=== PATIENT | female | born 1990 ===

== ENCOUNTER 2016-12-10 05:29 | Inpatient (IN) ==
[2016-12-10] MEDS ORDERED: LEVOFLOXACIN 750 MG TABLET PO STA (06:20)
[2016-12-10] MEDS ORDERED: LEVOFLOXACIN 750 MG TABLET ONE (06:46)
[2016-12-10 07:15] LABS: Basophils % 0.2 % (0.0-0.8); Eosinophils % 0.1 % (0.00-10.9); Hematocrit 31.9 VOL% (35.7-47.0); Hemoglobin 10.1 GM/DL (12.0-16.0); Immature Granulocytes % 0.3 %; Immature Granulocytes Absolute 0.04 #; Lymphocytes # 1.2 10*3/uL (1.4-4.0); Lymphocytes % 9.3 % (21.3-54.2); Mean Corpuscular HGB Conc 31.7 GM/DL (32-36); Mean Corpuscular Hemoglobin 24 PG (27-34); Mean Corpuscular Volume 75.4 FL (87-102); Mean Platelet Volume 10.9 FL (9.6-12.0); Monocytes # 0.5 10*3/uL (0.11-0.8); Monocytes % 3.5 % (1.7-12.7); Neutrophils # 11.3 10*3/uL (1.4-7.4); Neutrophils % 86.6 % (38.7-73.9); Platelet Count 263 T/CUMM (130-400); Red Blood Count 4.23 MC/CUMM (3.8-5.5); Red Cell Distribution Width 14.9 % (9.3-17.3)
[2016-12-10 07:33] LABS: Elliptocytes Few; Hypochromasia 1+; Polychromasia Slight
[2016-12-10] MEDS ORDERED: CLINDAMYCIN INJ 600 MG in PREMIX 1 EACH IV STA (07:45)
[2016-12-10] MEDS ORDERED: CLINDAMYCIN INJ 50 ML IV ONE (07:46)
[2016-12-10] MEDS ORDERED: ONDANSETRON 4 MG/2 ML VIAL IV PRN (07:54)
[2016-12-10] MEDS ORDERED: LEVOFLOXACIN INJ 750 MG in PREMIX 1 EACH IV STA (07:54)
[2016-12-10 07:55] LABS: Albumin 3.3 G/DL (3.4-5.0); Bilirubin,Total 0.5 MG/DL (0.2-1.0); Calcium 8.9 MG/DL (8.5-10.1); Osmolality,Calculated 277.5 MOS/KG (273-304); Total Protein 7.3 G/DL (6.4-8.3)
--- NOTE | 2016-12-10 07:55 | XRay Report ---
XR chest 2V Date: 12/10/2016 6:20 AM History: Shortness of breath Comparison: None Technique: PA and lateral chest Findings: The heart is normal in size. Diffuse alveolar parenchymal findings in the right lung especially in the right middle lobe. Minimal shift of the mediastinum to the right. No acute osseous findings are noted. Impression: Evidence of pneumonia involving the right lung especially the right middle lobe. Minimal shift of mediastinum to the right consistent with associated atelectasis. Ill-defined densities are noted and follow-up chest x-ray is recommended. PROCEDURE INTERPRETED AT [facility] DEPARTMENT OF RADIOLOGY Final Report Signed by: Dr. Beryl Aj
[2016-12-10 07:57] LABS: Potassium 6.2 MMOL/L (3.5-5.1)
--- NOTE | 2016-12-10 07:59 | Emergency Department Note ---
Erica Shipman Brittany, am scribing for, and in the presence of, Neymar López MD 06:19. Rene Shipman Phillip K, MD, personally performed the services described in this documentation, ascribed by Larisa Maldonado in my presence, and it is both accurate and complete 623 . Arrival - Arrival Chief Complaint: Shortness of Breath Stated Complaint: sob ED Nursing Triage Note: pt presented to triage ambulatory with c/o SOB x 5 hrs. Pt states she woke up SOB. reports hx of gastric bypass and has a problem with gastric reflux since surgery. pt stats she is concerned she aspirated. O2 sats 99% on RA. pt anxious and coughing in triage. Mode of Arrival: Ambulatory Limitations: No Limitations Source: Patient Time Seen by Provider: 12/10/16 06:03 - History of Present Illness HPI Narrative: This is a 26 y/o black female, who presents to the ED with c/o SOB which started 5 hours ago. he reports a cough but denies a fever. She steates 4 years ago she had gastric bypass surgery and has had a hx of aspiration. She reports she has had a sharp chest pain when coughing. Pt has no other complaints/pain in the ED at this time. Pt denies a PMHx. Pt has had a gastric bypass surgery. Pt denies a family medical Hx. Pt denies a smoking Hx but notes drinking on occasional. 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[employer]) Consistency: constant Severity: moderate Date of Last Menstrual Period: 11/26/16 Allergies/Adverse Reactions: Allergies Allergy/AdvReac Type Severity Reaction Status Date / Time No Known Allergies Allergy Verified 12/10/16 05:40 Home Medications: Home Medications Medication Instructions Recorded Confirmed Type Omeprazole 40 mg PO DAILY 12/10/16 12/10/16 History Review of System - Review of System 12 point system: reviewed and no additional remarkable complaints except as stated - Review of System Constitutional: Absent: fever Respiratory: Present: cough Cardiovascular: Present: chest pain, dyspnea on exertion Medical,Surgical,& Family Hx - Medical History Cardio: No history of: Hypertension Endocrine: No history of: Diabetes Mellitus (IDDM), Diabetes Mellitus (NIDDM) Respiratory: No history of: Asthma, Bronchitis, Pneumonia Renal: No history of: Renal Failure, Renal Problems Gastrointestinal: No history of: Gastrointestinal Bleed, Liver Problems, GI Problems - Surgical History Abdominal Surgeries: Surgical HX of: Gastric Bypass Surgery (2013) - Social History Smoking Status: Never smoker Frequency of Alcohol Use: Occasionally Type of Drug Use: None Exam Vital Signs: Vital Signs Temperature 98.8 F 12/10/16 05:32 Pulse Rate 96 H 12/10/16 06:10 Respiratory Rate 20 12/10/16 06:23 Blood Pressure 112/72 12/10/16 06:10 O2 Sat by Pulse Oximetry 98 12/10/16 05:32 - General General appearance: alert, in no apparent distress - Head Head exam: Present: atraumatic, normocephalic, normal inspection - Eye Eye exam: Present: normal appearance, PERRL, EOMI. Absent: nystagmus, miosis, mydriasis - ENT ENT exam: Present: normal exam, normal oropharynx, mucous membranes moist, TM's normal bilaterally, normal external ear exam - Neck Neck exam: Present: normal inspection, full ROM, trachea midline. Absent: tenderness, meningismus, lymphadenopathy, thyromegaly - Chest Chest inspection: Present: normal inspection, symmetric chest wall rise. Absent : tenderness, rash, abscess - Respiratory Respiratory exam: Present: rales (Rales in the right lung ) - Cardiovascular Cardiovascular exam: Present: normal rhythm, tachycardia, normal heart sounds. Absent: murmur, rubs, gallop, clicks - Abdominal Exam Abdominal exam: Present: soft, normal bowel sounds. Absent: distention, tenderness, guarding, rebound, rigidity - Rectal Exam Rectal exam: Present: deferred - Extremities Exam Extremities exam: Present: normal inspection, full ROM, normal capillary refill. Absent: tenderness, pedal edema, joint swelling, calf tenderness - Back Exam Back exam: Present: normal inspection, full ROM. Absent: tenderness, muscle spasm, rashes - Neurological Exam Neurological exam: Present: alert, oriented X3, CN II-XII intact. Absent: motor sensory deficit - Psychiatric Psychiatric exam: Present: normal affect, normal mood. Absent: depressed, agitated, anxious, flat affect, manic - Skin Skin exam: Present: warm, dry, intact, normal color. Absent: rash, cyanosis, diaphoresis, erythema, pallor, mottled Course Course Narrative: Patient discussed with Dr. Coughlin and we will admit for IV antibiotics and a pulmonary consult. Results - Labs CBC & BMP: 12/10/16 06:29 12/10/16 06:29 Lab Results: I have reviewed the patients labs Labs: Laboratory Tests 12/10/16 06:29 WBC 13.0 H RBC 4.23 Hgb 10.1 L Hct 31.9 L MCV 75.4 L MCH 24 L MCHC 31.7 L RDW 14.9 Plt Count 263 MPV 10.9 Neut % (Auto) 86.6 H Lymph % (Auto) 9.3 L Harney % (Auto) 3.5 Eos % (Auto) 0.1 Baso % (Auto) 0.2 Neut # (Auto) 11.3 H Lymph # (Auto) 1.2 L Harney # (Auto) 0.5 Eos # (Auto) 0.0 Baso # (Auto) 0.0 Immature Gran % 0.3 Nucleated RBC % 0.0 Immature Gran # 0.04 Nucleated RBCs # 0.00 Polychromasia Slight Hypochromasia 1+ Elliptocytes Few Laboratory Tests 12/10/16 06:29 WBC 13.0 H RBC 4.23 Hgb 10.1 L Hct 31.9 L MCV 75.4 L MCH 24 L MCHC 31.7 L RDW 14.9 Plt Count 263 MPV 10.9 Neut % (Auto) 86.6 H Lymph % (Auto) 9.3 L Harney % (Auto) 3.5 Eos % (Auto) 0.1 Baso % (Auto) 0.2 Neut # (Auto) 11.3 H Lymph # (Auto) 1.2 L Harney # (Auto) 0.5 Eos # (Auto) 0.0 Baso # (Auto) 0.0 Immature Gran % 0.3 Nucleated RBC % 0.0 Immature Gran # 0.04 Nucleated RBCs # 0.00 Polychromasia Slight Hypochromasia 1+ Elliptocytes Few - EKG EKG results: interpreted by ERMD (Sinus tachycardia) - Diagnostic Findings Procedure: Chest x-ray: report reviewed by me (Evidence of pneumonia involving the right lung especially the right middle lobe. Minimal shift of mediastinum ot the right consitent with associated atel) Disposition Clinical Impression: Pneumonia, Possible aspiration pneumonia Case discussed with: patient Disposition: Still a Patient Condition: Guarded Additional Instructions: Admit to Dr. Coughlin.
[2016-12-10] MEDS: CLINDAMYCIN INJ 600 MG in PREMIX 1 EACH IV SCH ×2 (08:21→16:14)
[2016-12-10] MEDS: DOCUSATE SODIUM 100 MG CAPSULE PO SCH ×2 (09:39→20:50)
--- NOTE | 2016-12-10 11:05 | Pulmonology Consult Note ---
Assessment and Plan (1) Aspiration pneumonia Status: Acute Assessment and plan: Patient remembers reflux in her mouth and aspirating. She normally can cough it up she says that she could not do that overnight. She felt it was all liquid. She has had several episodes of aspiration that she has noted. She did have lap band surgery actually a gastric sleeve about 3 years ago. This may need looking at by GI to see if she needs further management other than Prilosec. Current Visit: Yes (2) Status post gastric sleeve surgery Status: Acute Assessment and plan: She had surgery about 3 years ago in [place]. She said she lost 100 pounds but has gained it back. Not sure the functionality of this at this point. She is having a good bit of reflux. Needs a GI evaluation. Current Visit: Yes History of Present Illness Chief complaint: Cough congestion shortness of breath History of present illness: Ms. Costa is a 26 year old female had gastric sleeve surgery several years ago when in school in [place]. She lost 100 pounds but has gained it back. She moved back to [place]. She has had several episodes of aspiration over the last couple of years but has not had any pneumonia that she is aware of. She just coughs a good bit after waking up during the night. Last night she felt like she had an episode of aspiration and this morning was coughing and having right pleuritic pain. She came to the emergency room. She was found to have an infiltrate in the right lung and was admitted. She is a non-smoker nondrinker. Only medication she takes regularly as Prilosec. Home Medications Medication Instructions Recorded Confirmed Type Omeprazole 40 mg PO DAILY 12/10/16 12/10/16 History Allergies Allergy/AdvReac Type Severity Reaction Status Date / Time No Known Allergies Allergy Verified 12/10/16 05:40 - Constitutional Constitutional: Present: weight gain, weight loss - Respiratory Respiratory: Present: cough, dyspnea on exertion, pain on inspiration - Gastrointestinal Gastrointestinal: Present: dyspepsia Exam (Pulmonay) H&P - Constitutional Vitals: Period Temp Pulse Resp BP Sys/Howe Pulse Ox Last 24 Hr 98.8 F 96-101 18-20 102-112/67-72 98 Exam: Patient's alert and oriented vital signs normal. Pupils react to light. Throat is clear. Neck supple bruits. Chest reveals rales in the right lung. I can hear them both posteriorly and anteriorly. Left lung is clear. Heart normal rate rhythm no murmurs. Abdomen soft nontender no masses. Bowel sounds present. Extremities no clubbing cyanosis or edema. Calves nontender Medical,Surgical,& Family Hx - Medical History Cardio: No history of: Hypertension Endocrine: No history of: Diabetes Mellitus (IDDM), Diabetes Mellitus (NIDDM) Respiratory: No history of: Asthma, Bronchitis, Pneumonia Renal: No history of: Renal Failure, Renal Problems Gastrointestinal: History of: GERD No history of: Gastrointestinal Bleed, Liver Problems, GI Problems - Surgical History Abdominal Surgeries: Surgical HX of: Gastric Bypass Surgery (2012) - Family History Family History: Reports;: Family Hypertension (mom) - Social History Smoking Status: Never smoker Frequency of Alcohol Use: Occasionally Type of Drug Use: None Results - Labs CBC & BMP: 12/10/16 06:29 12/10/16 06:29 - Diagnostic Findings Procedure: Chest x-ray: image reviewed by me (Right lung infiltrate. I favor it being in her superior segment. Difficult to visualize on lateral.)
[2016-12-10] MEDS ORDERED: FUROSEMIDE 20 MG/2 ML VIAL IV ONE (11:10)
[2016-12-10] MEDS ORDERED: ALBUTEROL 2.5 MG/3 ML NEB RESP TX ONE (11:11)
[2016-12-10] MEDS ORDERED: FUROSEMIDE 40 MG/4 ML VIAL ONE (11:33)
--- NOTE | 2016-12-10 11:34 | EKG Report ---
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
--- NOTE | 2016-12-10 12:07 | Gastrointestinal Consult Note ---
<Arabella Hernandez - Last Filed: 12/10/16 12:05> Assessment and Plan (1) GERD (gastroesophageal reflux disease) Status: Acute Assessment and plan: 12/10-Hx of gastric sleeve surgery with onset of reflux, increased cough at HS, and new onset right lung pneumonia on chest xray. Start Protonix. Will consider EGD when respiratory status improves. Plan and addendum to follow by Dr Shelton. Current Visit: Yes History of Present Illness Chief complaint: Reflux History of present illness: Ms. Costa is a 26 year old female who was admitted to the hospital with onset of shortness of breath and cough. Pt states that over the last several days she has had onset of increased shortness and cough. Pt has a history of gastric sleeve surgery four years ago at [facility] while she was in school. She states that she initially lost 100 pounds however over the last four years she has slowly gained this back. She reports that ever since her surgery she has had an issue with reflux symptoms. She states that she has episodes of off and on reflux and at times regurgitation and she takes Prilosec for this but she does admit to not taking this consistently. She states that here recently she has noticed that at night she is awakened with a cough and constant having to clear her throat. She also reports a feeling of burning in her esophagus at times. She denies any dysphagia or abdominal pain associated with this. She states that she does sleep with several pillows at night however the head of her bed is not elevated. Patient has no prior history of endoscopy in the past. She was admitted to the hospital and upon admission she was found on x- ray to have an infiltration to her right lung and started on IV antibiotics. After pulmonology evaluation, patient felt to have an element of aspiration associated with her reflux. She takes no regular medications other than Prilosec as needed. She works 2 jobs and is fairly active in her lifestyle. However she does state that she has noted since she has gained her weight back that her reflux symptoms have worsened. Home Medications Medication Instructions Recorded Confirmed Type Omeprazole 40 mg PO DAILY 12/10/16 12/10/16 History Allergies Allergy/AdvReac Type Severity Reaction Status Date / Time No Known Allergies Allergy Verified 12/10/16 05:40 Medical,Surgical,& Family Hx - Medical History Cardio: No history of: Hypertension Endocrine: No history of: Diabetes Mellitus (IDDM), Diabetes Mellitus (NIDDM) Respiratory: No history of: Asthma, Bronchitis, Pneumonia Renal: No history of: Renal Failure, Renal Problems Gastrointestinal: History of: GERD No history of: Gastrointestinal Bleed, Liver Problems, GI Problems - Surgical History Abdominal Surgeries: Surgical HX of: Gastric Bypass Surgery (2012) - Family History Family History: Reports;: Family Hypertension (mom) - Social History Smoking Status: Never smoker Frequency of Alcohol Use: Occasionally Type of Drug Use: None 12 point system: reviewed and no additional remarkable complaints except as stated - Constitutional Constitutional: Present: as per HPI - EENT Eyes: Present: as per HPI Ears: Present: as per HPI Nose, mouth and throat: Present: as per HPI - Cardiovascular Cardiovascular: Present: as per HPI - Respiratory Respiratory: Present: as per HPI - Gastrointestinal Gastrointestinal: Present: as per HPI, dyspepsia - Genitourinary Genitourinary: Present: as per HPI - Musculoskeletal Musculoskeletal: Present: as per HPI - Neurological Neurological: Present: as per HPI - Psychiatric Psychiatric: Present: as per HPI - Endocrine Endocrine: Present: as per HPI - Hematologic/Lymphatic Hematologic/Lymphatic: Present: as per HPI Exam - Constitutional Vitals: Period Temp Pulse Resp BP Sys/Howe Pulse Ox Last 24 Hr 98.3 F-98.8 F 66-101 18-20 102-120/67-72 98-99 General appearance: normal weight, no acute distress - Head Head exam: Present: normal inspection, normocephalic - Eye Eye exam: Present: other (lids and conjunctiva unremarkable). Absent: scleral icterus - ENT ENT exam: Present: normal exam, normal oropharynx - Neck Neck exam: Present: normal inspection - Respiratory Respiratory exam: Present: clear to auscultation bilaterally. Absent: rales, rhonchi, wheezes - Cardiovascular Cardiovascular exam: Present: regular rate and rhythm. Absent: diastolic murmur , JVD, systolic murmur - GI/Abdominal GI/Abdominal exam: Present: normal bowel sounds, soft. Absent: ascites, distended, mass, organomegaly, tenderness - Extremities Exam Extremities exam: Present: normal inspection, full ROM - Back Exam Back exam: Present: normal inspection - Neurological Exam Neurological exam: Present: alert, oriented X3 - Psychiatric Psychiatric exam: Present: normal affect, normal mood - Skin Skin exam: Present: normal color, warm, dry Results - Labs CBC & BMP: 12/10/16 06:29 12/10/16 10:01 Lab Results: I have reviewed the past 24 hour labs - Diagnostic Findings Procedure: Chest x-ray: report reviewed by me <Pan Shelton - Last Filed: 12/10/16 18:27> History of Present Illness History of present illness: Ms. Costa is a 26 year old female Exam - Constitutional Vitals: Period Temp Pulse Resp BP Sys/Howe Pulse Ox Last 24 Hr 98.1 F-98.8 F 66-101 18-20 102-120/60-72 98-99 Results - Labs CBC & BMP: 12/10/16 06:29 12/10/16 10:01
--- NOTE | 2016-12-10 17:59 | Family Practice History&Phys ---
Assessment and Plan (1) Aspiration pneumonia Status: Acute Assessment and plan: 12/10/2016: We do have her on antibiotics at this time and pulmonary has already seen her. Will continue current treatment Current Visit: Yes (2) GERD (gastroesophageal reflux disease) Status: Acute Assessment and plan: 12/10/2016: GI center and will follow along with course. PPI Current Visit: Yes (3) Pneumonia Status: Acute Assessment and plan: 12/10/2016: As mentioned above patient is on antibiotics Current Visit: Yes (4) Status post gastric sleeve surgery Status: Acute Assessment and plan: 12/10/2016: This is chronic Current Visit: Yes History of Present Illness Chief complaint: Dyspnea History of present illness: Ms. Costa is a 26 year old female Who came in through the emergency room with some shortness of breath. She is a very reliable historian, very cognitive. Has a history of gastric bypass which was done in 2012 and states that she has had episodes in the past of having reflux and feels like last night she had reflux and aspirated some of the contents. She normally can cough it up but apparently was unable to last night and continued to have bronchospasms. In the emergency room was noted that she had right lung infiltrate on exam and she had a slight elevation of her white count 13,000 and there was concern of course for aspiration pneumonia. States that it is a little hard at this time to take a full deep breath. She is not having any nausea vomiting or diarrhea. Not having any other constitutional symptoms. Does not smoke or drink or use illicit drugs. At this time is very alert and oriented. Oxygen sats are 98% on 2 L at present. Of note her potassium on admission was 6.2 but we repeated this and it came back to be 4.9 platelet. I believe that there was some hemolysis with the first sample. The remaining lab looked fairly normal except for slight anemia with a hemoglobin hematocrit of 10 and 32 respectively. Patient has been admitted and will monitor closely. Appreciate pulmonary consult and we will continue on current antibiotics. We will get a GI consult as well which is already been done Home Medications Medication Instructions Recorded Confirmed Type Omeprazole 40 mg PO DAILY 12/10/16 12/10/16 History Allergies Allergy/AdvReac Type Severity Reaction Status Date / Time No Known Allergies Allergy Verified 12/10/16 05:40 12 point system: reviewed and no additional remarkable complaints except as stated (Those mentioned in the history and physical) Medical,Surgical,& Family Hx - Medical History Cardio: No history of: Hypertension Endocrine: No history of: Diabetes Mellitus (IDDM), Diabetes Mellitus (NIDDM) Respiratory: No history of: Asthma, Bronchitis, Pneumonia Renal: No history of: Renal Failure, Renal Problems Gastrointestinal: History of: GERD No history of: Gastrointestinal Bleed, Liver Problems, GI Problems - Surgical History Abdominal Surgeries: Surgical HX of: Gastric Bypass Surgery (2012) - Family History Family History: Reports;: Family Hypertension (mom) - Social History Smoking Status: Never smoker Frequency of Alcohol Use: Occasionally Type of Drug Use: None Exam - Constitutional Vitals: Period Temp Pulse Resp BP Sys/Howe Pulse Ox Last 24 Hr 98.1 F-98.8 F 66-101 18-20 102-120/60-72 98-99 Exam: Generally very alert female is responsive and does have some very mild wheezing at present but no donna shortness of breath HEENT neck is supple trachea midline Cardia vascular rate is regular no gallop or rub Lungs reveal some mild wheezing. There are a few areas of rhonchi particularly on the right side Abdomen soft nondistended Extremities no clubbing cyanosis or edema Results - Labs CBC & BMP: 12/10/16 06:29 12/10/16 10:01
[2016-12-10] MEDS: ACETAMINOPHEN 325 MG TABLET PO PRN (20:41)
[2016-12-10] MEDS: rOPINIRole 0.25 MG TABLET PO SCH (20:41)
[2016-12-10] MEDS: PANTOPRAZOLE 40 MG TABLET PO SCH (20:50)
[2016-12-11] MEDS: CLINDAMYCIN INJ 600 MG in PREMIX 1 EACH IV SCH ×3 (03:56→20:47)
[2016-12-11] MEDS: PANTOPRAZOLE 40 MG TABLET PO SCH (08:16)
[2016-12-11] MEDS: DOCUSATE SODIUM 100 MG CAPSULE PO SCH ×2 (08:16→20:46)
[2016-12-11] MEDS: ACETAMINOPHEN 325 MG TABLET PO PRN (08:17)
--- NOTE | 2016-12-11 08:41 | Gastrointestinal Progress Note ---
<Arabella Hernandez - Last Filed: 12/11/16 08:38> Assessment and Plan (1) GERD (gastroesophageal reflux disease) Status: Acute Assessment and plan: 12/11-Continued reflux issues. No changes. Continue to monitor at this time and proceed with EGD when resp status improved. Plan and addendum to follow by Dr Shelton. 12/10-Hx of gastric sleeve surgery with onset of reflux, increased cough at HS, and new onset right lung pneumonia on chest xray. Start Protonix. Will consider EGD when respiratory status improves. Plan and addendum to follow by Dr Shelton. Current Visit: Yes Gastroenterology - PN: Subj Interval history: CC: Reflux Pt is seen awake and alert sitting up in bed. She states she is feeling about the same at this time. She states she is having some difficulty breathing in deep due to discomfort but denies any SOB. Pt states that she rested well overnight. She was started on Protonix last night and states she is anxious to see if this helps some today. Denies any abdominal pain, nausea or vomiting. Abdomen is soft, nontender. ROS: Denies SOB or chest pain Exam (Progress Note) - Constitutional Vitals: Period Temp Pulse Resp BP Sys/Howe Pulse Ox Last 24 Hr 97.1 F-98.3 F 66-91 16-20 109-120/57-80 97-100 General appearance: no acute distress, over weight - Head Head exam: Present: normal inspection, normocephalic - Eye Eye exam: Present: other (lids and conjunctiva unremarakble). Absent: scleral icterus - ENT ENT exam: Present: normal exam, normal oropharynx - Neck Neck exam: Present: normal inspection - Respiratory Respiratory exam: Present: clear to auscultation bilaterally. Absent: rales, rhonchi, wheezes - Cardiovascular Cardiovascular exam: Present: regular rate and rhythm. Absent: diastolic murmur , JVD, systolic murmur - GI/Abdominal GI/Abdominal exam: Present: normal bowel sounds, soft. Absent: ascites, distended, mass, organomegaly, tenderness - Extremities Exam Extremities exam: Present: normal inspection, full ROM - Back Exam Back exam: Present: normal inspection - Neurological Exam Neurological exam: Present: alert, oriented X3 - Psychiatric Psychiatric exam: Present: normal affect, normal mood - Skin Skin exam: Present: normal color, warm, dry Results - Labs CBC & BMP: 12/10/16 06:29 12/10/16 10:01 Lab Results: I have reviewed the past 24 hour labs <Pan Shelton - Last Filed: 12/11/16 18:36> Exam (Progress Note) - Constitutional Vitals: Period Temp Pulse Resp BP Sys/Howe Pulse Ox Last 24 Hr 97.1 F-98.6 F 64-89 16-20 95-120/49-80 96-100 Results - Labs CBC & BMP: 12/10/16 06:29 12/10/16 10:01
--- NOTE | 2016-12-11 08:48 | Pulmonology Progress Note ---
Pulmonary - PN: Subj Interval history: This 26-year-old black female has a right-sided pneumonia that she feels started after she had an aspiration episode during the night. She sounds better today. Will recheck chest x-ray tomorrow. I will also get a CT scan to see if the location of her pneumonia is consistent with aspiration. GI is seeing her and plans to do an EGD prior to discharge. Likely that will be in a few days. Exam (Progress Note) - Constitutional Vitals: Period Temp Pulse Resp BP Sys/Howe Pulse Ox Last 24 Hr 97.1 F-98.3 F 66-91 16-20 109-120/57-80 97-100 Exam: Patient is alert oriented afebrile. Vital signs normal except for her weight. HEENT: Pupils react to light. Throat is clear. Neck is supple no bruits. Chest sounds clear today I do not hear any rales in the right lung. Heart normal rate and rhythm no murmurs. Abdomen soft obese unable to palpate abdominal organs. Bowel sounds present. Extremities no clubbing cyanosis or edema. Calves nontender. Results - Labs CBC & BMP: 12/10/16 06:29 12/10/16 10:01 Lab Results: I have reviewed the past 24 hour labs Assessment and Plan (1) Aspiration pneumonia Status: Acute Assessment and plan: Patient remembers reflux in her mouth and aspirating. She normally can cough it up she says that she could not do that overnight. She felt it was all liquid. She has had several episodes of aspiration that she has noted. She did have lap band surgery actually a gastric sleeve about 3 years ago. This may need looking at by GI to see if she needs further management other than Prilosec. 12/11/2016 again recurrent episodes of aspiration pneumonia sounds likely. Have ordered CT to check the location of the infiltrate. GI plans to do gastroscope in couple of days. Current Visit: Yes (2) Status post gastric sleeve surgery Status: Acute Assessment and plan: She had surgery about 3 years ago in [place]. She said she lost 100 pounds but has gained it back. Not sure the functionality of this at this point. She is having a good bit of reflux. Needs a GI evaluation. 12/11/2016 she has gained the weight back. This needs addressing further. Current Visit: Yes
--- NOTE | 2016-12-11 10:21 | CT Report ---
History: Recurrent pneumonia. Question aspiration Date: 12/11/2016 Study: CT chest without contrast Comparison exam: Chest x-ray 12/10/[address] sections were obtained through the lungs without contrast. The CT exam was performed using one or more of the following dose reduction techniques: Automated exposure control, adjustment of the mA and/or kV according to patient size, or use of iterative reconstruction technique. There is patchy and groundglass infiltrate scattered throughout the right lung involving right middle lobe, right upper lobe, and right lower lobe. There is mild platelike subsegmental atelectasis in the right lower lobe. There is no pleural or pericardial effusion. There is no mediastinal mass or gross mediastinal lymphadenopathy. There is some residual thymic tissue present. Osseous structures are unremarkable. The partially visualized upper abdomen is unremarkable. Impression: Right lung pneumonia. Aspiration pneumonia related to aspiration of gastric contents could have this appearance. PROCEDURE INTERPRETED AT [facility] DEPARTMENT OF RADIOLOGY Final Report Signed by: Dr. Lelo Spears
[2016-12-11] MEDS ORDERED: FUROSEMIDE 20 MG/2 ML VIAL IV ONE (11:10)
[2016-12-11] MEDS ORDERED: MAGNESIUM SULF RIDER 2 GM in PREMIX 1 EACH IV ONE (16:19)
--- NOTE | 2016-12-11 16:37 | Family Practice Progress Note ---
Family Practice - PN: Subj Interval history: Patient seen this morning. She is still having some mild shortness of breath but some improvement today. It does appear to be an aspiration event and she is scheduled for a CT scan of the lungs. In no acute distress. Is afebrile at this time. Oxygen sats are 97-98% and her vital signs are otherwise stable. We will continue to monitor and follow along with pulmonary and GI services who were playing scoping Exam (Progress Note) - Constitutional Vitals: Period Temp Pulse Resp BP Sys/Howe Pulse Ox Last 24 Hr 97.1 F-98.6 F 64-89 16-20 95-120/49-80 96-100 Exam: Stable no acute distress HEENT essentially negative Cardiovascular rate is regular no gallop or rub Lungs few areas of rhonchi on the right but otherwise generally clear with no rales. Abdomen soft nondistended Extremities no clubbing cyanosis or edema Results - Labs CBC & BMP: 12/10/16 06:29 12/10/16 10:01 Assessment and Plan (1) Aspiration pneumonia Status: Acute Assessment and plan: 12/10/2016: We do have her on antibiotics at this time and pulmonary has already seen her. Will continue current treatment Current Visit: Yes (2) GERD (gastroesophageal reflux disease) Status: Acute Assessment and plan: 12/10/2016: GI center and will follow along with course. PPI Current Visit: Yes (3) Pneumonia Status: Acute Assessment and plan: 12/10/2016: As mentioned above patient is on antibiotics Current Visit: Yes (4) Status post gastric sleeve surgery Status: Acute Assessment and plan: 12/10/2016: This is chronic Current Visit: Yes
[2016-12-11] MEDS: rOPINIRole 0.25 MG TABLET PO SCH (20:46)
[2016-12-12] MEDS: CLINDAMYCIN INJ 600 MG in PREMIX 1 EACH IV SCH ×3 (04:01→21:29)
[2016-12-12 06:43] LABS: Basophils % 0.4 % (0.0-0.8); Eosinophils # 0.2 10*3/uL (0.0-0.87); Eosinophils % 1.7 % (0.00-10.9); Hemoglobin 9.1 GM/DL (12.0-16.0); Immature Granulocytes % 0.4 %; Immature Granulocytes Absolute 0.04 #; Lymphocytes # 2.8 10*3/uL (1.4-4.0); Lymphocytes % 30.2 % (21.3-54.2); Mean Corpuscular HGB Conc 31.4 GM/DL (32-36); Mean Corpuscular Hemoglobin 23 PG (27-34); Mean Platelet Volume 10.4 FL (9.6-12.0); Monocytes # 0.5 10*3/uL (0.11-0.8); Monocytes % 4.9 % (1.7-12.7); Neutrophils # 5.8 10*3/uL (1.4-7.4); Neutrophils % 62.4 % (38.7-73.9); Platelet Count 409 T/CUMM (130-400); Red Blood Count 3.92 MC/CUMM (3.8-5.5); Red Cell Distribution Width 15.1 % (9.3-17.3); White Blood Count 9.3 T/CUMM (4-12)
[2016-12-12 07:11] LABS: Calcium 8.5 MG/DL (8.5-10.1); Magnesium 2.1 MG/DL (1.8-2.4); Osmolality,Calculated 278.3 MOS/KG (273-304); Potassium 4.4 MMOL/L (3.5-5.1)
[2016-12-12] MEDS: PANTOPRAZOLE 40 MG TABLET PO SCH (08:02)
[2016-12-12] MEDS: DOCUSATE SODIUM 100 MG CAPSULE PO SCH ×2 (08:05→21:03)
--- NOTE | 2016-12-12 08:17 | XRay Report ---
XR chest 2V Indication: Follow-up right pneumonia Comparison: Chest x-ray dated December 10, 2016 Technique: Frontal and lateral views of the chest. Findings: The cardiomediastinal silhouette is stable in configuration. Interval improved right mid and lower lung consolidation with little residual remaining. Visualized osseous and surrounding soft tissue structures appear grossly unchanged. IMPRESSION: As above. PROCEDURE INTERPRETED AT [facility] [place] DEPARTMENT OF RADIOLOGY Final Report Signed by: Dr Johnnie Bravo
--- NOTE | 2016-12-12 10:06 | Family Practice Progress Note ---
Family Practice - PN: Subj Interval history: Patient seen this morning. She was asleep and resting very well. I did not wake her up however I do plan on seeing her later today. She had a good night according to nurses. She does have a right pneumonia based on CT scan Exam (Progress Note) - Constitutional Vitals: Period Temp Pulse Resp BP Sys/Howe Pulse Ox Last 24 Hr 96.9 F-98.6 F 69-80 16-20 101-120/51-90 96-100 Exam: Stable no acute distress, asleep HEENT essentially negative Cardiovascular rate is regular no gallop or rub Lungs: The patient is breathing very easily and in no respiratory distress. Results - Labs CBC & BMP: 12/12/16 05:59 12/12/16 05:59 Assessment and Plan (1) Aspiration pneumonia Status: Acute Assessment and plan: 12/10/2016: We do have her on antibiotics at this time and pulmonary has already seen her. Will continue current treatment 12/12/2016: Continuing antibiotics and pulmonary as above Current Visit: Yes (2) GERD (gastroesophageal reflux disease) Status: Acute Assessment and plan: 12/10/2016: GI center and will follow along with course. PPI 12/12/2016: GI is involved. Planning an EGD very soon Current Visit: Yes (3) Pneumonia Status: Acute Assessment and plan: 12/10/2016: As mentioned above patient is on antibiotics 12/12/2016: Again patient is on antibiotics and breathing easy at present Current Visit: Yes (4) Status post gastric sleeve surgery Status: Chronic Assessment and plan: 12/10/2016: This is chronic 12/12/2016 no change Current Visit: Yes
--- NOTE | 2016-12-12 10:06 | Gastrointestinal Progress Note ---
<Arabella Hernandez - Last Filed: 12/12/16 09:07> Assessment and Plan (1) GERD (gastroesophageal reflux disease) Status: Acute Assessment and plan: 12/12-respiratory status improving. Okay to proceed with EGD from pulmonary standpoint. Plan to proceed with this tomorrow if patient remains stable. Plan an addendum follow Dr. Shelton. 12/11-Continued reflux issues. No changes. Continue to monitor at this time and proceed with EGD when resp status improved. Plan and addendum to follow by Dr Shelton. 12/10-Hx of gastric sleeve surgery with onset of reflux, increased cough at HS, and new onset right lung pneumonia on chest xray. Start Protonix. Will consider EGD when respiratory status improves. Plan and addendum to follow by Dr Shelton. Current Visit: Yes Gastroenterology - PN: Subj Interval history: CC: Reflux Patient is seen awake alert with mother bedside. States she had an uneventful night. She states that she is still having some discomfort with taking deep breaths however this is improving. She states that overall her breathing is better. Abdomen is soft, nontender. States that since starting the Protonix that her reflux has improved some at this time. Tolerating diet at present time. She is noted to have had a CT of lungs on yesterday which shows right lung pneumonia related to aspiration of gastric contents as a possibility. Dr. Israel has evaluated this morning and feels like it is safe to proceed at this point with an EGD. She has eaten breakfast this morning therefore this will be scheduled for tomorrow. ROS: Denies shortness of breath or chest pain Exam (Progress Note) - Constitutional Vitals: Period Temp Pulse Resp BP Sys/Howe Pulse Ox Last 24 Hr 96.9 F-98.6 F 69-80 16-20 101-120/51-90 96-100 General appearance: no acute distress, over weight - Head Head exam: Present: normal inspection, normocephalic - Eye Eye exam: Present: other (Lids and conjunctive are). Absent: scleral icterus - ENT ENT exam: Present: normal exam, normal oropharynx - Neck Neck exam: Present: normal inspection - Respiratory Respiratory exam: Present: clear to auscultation bilaterally. Absent: rales, rhonchi, wheezes - Cardiovascular Cardiovascular exam: Present: regular rate and rhythm. Absent: diastolic murmur , JVD, systolic murmur - GI/Abdominal GI/Abdominal exam: Present: normal bowel sounds, soft. Absent: ascites, distended, mass, organomegaly, tenderness - Extremities Exam Extremities exam: Present: normal inspection, full ROM - Back Exam Back exam: Present: normal inspection - Neurological Exam Neurological exam: Present: alert, oriented X3 - Psychiatric Psychiatric exam: Present: normal affect, normal mood - Skin Skin exam: Present: normal color, warm, dry Results - Labs CBC & BMP: 12/12/16 05:59 12/12/16 05:59 Lab Results: I have reviewed the past 24 hour labs - Diagnostic Findings Procedure: CT - chest: report reviewed by me <Pan Shelton - Last Filed: 12/12/16 18:06> Exam (Progress Note) - Constitutional Vitals: Period Temp Pulse Resp BP Sys/Howe Pulse Ox Last 24 Hr 96.9 F-98.8 F 74-94 16-20 94-120/50-90 96-100 Results - Labs CBC & BMP: 12/12/16 05:59 12/12/16 05:59
--- NOTE | 2016-12-12 10:06 | Pulmonology Progress Note ---
Pulmonary - PN: Subj Interval history: This 26-year-old black female has a right-sided pneumonia that she feels started after she had an aspiration episode during the night. She sounds better today. Will recheck chest x-ray tomorrow. I will also get a CT scan to see if the location of her pneumonia is consistent with aspiration. GI is seeing her and plans to do an EGD prior to discharge. Likely that will be in a few days. 12/12/2016 patient feeling much better. Chest x-ray looks much better today. CT scan yesterday showed groundglass opacities in both the upper and lower lobes on the right but they do appear worse posteriorly and inferiorly. This is most consistent with aspiration based on her history. She can have her EGD done anytime now. Probably could go home with oral antibiotics after that is done depending on what needs to be done with that. Exam (Progress Note) - Constitutional Vitals: Period Temp Pulse Resp BP Sys/Howe Pulse Ox Last 24 Hr 96.9 F-98.6 F 69-80 16-20 101-120/51-90 96-100 Exam: Patient is alert oriented afebrile. Vital signs normal except for her weight. HEENT: Pupils react to light. Throat is clear. Neck is supple no bruits. Chest sounds clear today I do not hear any rales in the right lung. Heart normal rate and rhythm no murmurs. Abdomen soft obese unable to palpate abdominal organs. Bowel sounds present. Extremities no clubbing cyanosis or edema. Calves nontender. Results - Labs CBC & BMP: 12/12/16 05:59 12/12/16 05:59 Lab Results: I have reviewed the past 24 hour labs - Diagnostic Findings Procedure: Chest x-ray: image reviewed by me (Right infiltrate much improved.) Assessment and Plan (1) Aspiration pneumonia Status: Acute Assessment and plan: Patient remembers reflux in her mouth and aspirating. She normally can cough it up she says that she could not do that overnight. She felt it was all liquid. She has had several episodes of aspiration that she has noted. She did have lap band surgery actually a gastric sleeve about 3 years ago. This may need looking at by GI to see if she needs further management other than Prilosec. 12/11/2016 again recurrent episodes of aspiration pneumonia sounds likely. Have ordered CT to check the location of the infiltrate. GI plans to do gastroscope in couple of days. 12/12/2016 radiographically improving rapidly. Needs EGD to evaluate because of aspiration. Can proceed with that. Home with oral antibiotics once she is stable post scope. Current Visit: Yes (2) Status post gastric sleeve surgery Status: Acute Assessment and plan: She had surgery about 3 years ago in [place]. She said she lost 100 pounds but has gained it back. Not sure the functionality of this at this point. She is having a good bit of reflux. Needs a GI evaluation. 12/11/2016 she has gained the weight back. This needs addressing further. 12/12/2016 defer to GI or gastric surgery for further management. Current Visit: Yes
[2016-12-12] MEDS: rOPINIRole 0.25 MG TABLET PO SCH (21:04)
[2016-12-13] MEDS: CLINDAMYCIN INJ 600 MG in PREMIX 1 EACH IV SCH ×2 (04:42→12:43)
[2016-12-13] MEDS: PANTOPRAZOLE 40 MG TABLET PO SCH ×2 (08:23→16:43)
[2016-12-13] MEDS: DOCUSATE SODIUM 100 MG CAPSULE PO SCH (08:23)
--- NOTE | 2016-12-13 09:57 | Pulmonology Progress Note ---
Pulmonary - PN: Subj Interval history: This 26-year-old black female has a right-sided pneumonia that she feels started after she had an aspiration episode during the night. She sounds better today. Will recheck chest x-ray tomorrow. I will also get a CT scan to see if the location of her pneumonia is consistent with aspiration. GI is seeing her and plans to do an EGD prior to discharge. Likely that will be in a few days. 12/12/2016 patient feeling much better. Chest x-ray looks much better today. CT scan yesterday showed groundglass opacities in both the upper and lower lobes on the right but they do appear worse posteriorly and inferiorly. This is most consistent with aspiration based on her history. She can have her EGD done anytime now. Probably could go home with oral antibiotics after that is done depending on what needs to be done with that. 12/13/2016 patient is to have EGD this morning. Her cough is quiet. X-ray has shown improvement. Concerned that there may be some problem with her previous gastric sleeve surgery. Defer to GI. Her history is certainly consistent with recurrent episodes of aspiration. Exam (Progress Note) - Constitutional Vitals: Period Temp Pulse Resp BP Sys/Howe Pulse Ox Last 24 Hr 97.3 F-98.9 F 63-94 18-22 94-115/49-67 98-100 Exam: Patient is alert oriented afebrile. Vital signs normal except for her weight. HEENT: Pupils react to light. Throat is clear. Neck is supple no bruits. Chest sounds clear today I do not hear any rales in the right lung. Heart normal rate and rhythm no murmurs. Abdomen soft obese unable to palpate abdominal organs. Bowel sounds present. Extremities no clubbing cyanosis or edema. Calves nontender. Results - Labs CBC & BMP: 12/12/16 05:59 12/12/16 05:59 Lab Results: I have reviewed the past 24 hour labs Assessment and Plan (1) Aspiration pneumonia Status: Acute Assessment and plan: Patient remembers reflux in her mouth and aspirating. She normally can cough it up she says that she could not do that overnight. She felt it was all liquid. She has had several episodes of aspiration that she has noted. She did have lap band surgery actually a gastric sleeve about 3 years ago. This may need looking at by GI to see if she needs further management other than Prilosec. 12/11/2016 again recurrent episodes of aspiration pneumonia sounds likely. Have ordered CT to check the location of the infiltrate. GI plans to do gastroscope in couple of days. 12/12/2016 radiographically improving rapidly. Needs EGD to evaluate because of aspiration. Can proceed with that. Home with oral antibiotics once she is stable post scope. 12/13/2016 radiographically essentially resolved. Looking for underlying cause Current Visit: Yes (2) Status post gastric sleeve surgery Status: Chronic Assessment and plan: She had surgery about 3 years ago in [place]. She said she lost 100 pounds but has gained it back. Not sure the functionality of this at this point. She is having a good bit of reflux. Needs a GI evaluation. 12/11/2016 she has gained the weight back. This needs addressing further. 12/12/2016 defer to GI or bariatric surgery for further management. 12/13/2016 defer to GI, and possibly bariatric surgery, depending on findings today Current Visit: Yes
[2016-12-13] MEDS ORDERED: PROPOFOL 200 MG/20 ML VIAL IV ONE (11:30)
[2016-12-13] MEDS ORDERED: LIDOCAINE 2% 5 ML VIAL ONE (11:30)
--- NOTE | 2016-12-13 11:41 | History and Physical Update ---
History and Physical Update - Physical Exam Mental Status: alert and oriented Heart: regular rate and rhythm Lung: clear to auscultation Abdomen: within normal limits Vitals: within normal limits
--- NOTE | 2016-12-13 11:44 | Operative Note ---
Date of procedure: 12/13/16 Pre-op diagnosis: Refractory reflux Procedure: EGD 26-year-old female with prior history of gastric sleeve surgery 4 years ago admitted with pneumonia and complaining of increasing reflux complaints. She reports poor diet compliance with her recommended diet for her gastric sleeve. She is now for upper endoscopy to further evaluate. Informed symptoms obtained the patient She was sedated with MAC anesthesia per anesthesia protocol. Patient placed in left lateral decubitus position the Olympus flexible video upper endoscope was inserted into the oral cavity under direct vision the esophagus was intubated. Findings Esophagus-normal proximal mid esophageal mucosa distal esophagus small hiatal hernia no significant esophagitis is seen. Stomach-status post gastric sleeve surgery with reduction in gastric volume as expected. No mucosal abnormalities are seen to direct retroflexed views throughout the stomach. Pylorus-normal Duodenum-normal for the bulb duodenum to the third portion of duodenum. The procedure terminated placed our procedure well discharge recovery in good condition Postop diagnosis: 1. Gastroesophageal reflux disease exacerbated by previous gastric sleeve surgery and poor dietary compliance. Continue twice daily PPI treatment and improve compliance with post gastric sleeve diet including elevation of the head of the bed. I am doubtful that hiatal hernia surgery is an option with her previous gastric plication but if symptoms persist this could be discussed. Okay to discharge from my standpoint. Anesthesia: MAC Surgeon / Physician: Pan Shelton Estimated blood loss: none Specimens: none sent Condition: stable Disposition: post procedure unit Results - Labs CBC & BMP: 12/12/16 05:59 12/12/16 05:59 Discharge Plan - Discharge Medications No Action Omeprazole 40 mg PO DAILY - Follow Up or Referral - Forms/Instructions
--- NOTE | 2016-12-13 12:38 | Anesthesia Post-Op ---
Anesthesia Post OP - Post Ansesthetic Evaluation Patient seen in post op: Yes Resp: within normal limits CV: within normal limits Mental: within normal limits Temp: within normal limits [id number]: within normal limits Nausea and Vomiting: within normal limits Pain: within normal limits
[2016-12-13 15:55] VITALS: BP 117/56
--- NOTE | 2016-12-13 16:49 | Discharge Summary ---
Diagnosis - Discharge Diagnosis (1) Aspiration pneumonia Status: Acute (2) GERD (gastroesophageal reflux disease) Status: Acute (3) Pneumonia Status: Acute (4) Status post gastric sleeve surgery Status: Chronic Specialty Discharge - Follow Up or Referrals Follow up with: Pan Shelton MD [Physician] - 1 Month Rock Israel MD [Physician] - 1 Week Toribio Coughlin DO [Physician] - 2 Weeks Discharge Plan - Discharge Data Disposition: Disch To Home/Self Care Condition at Discharge: Stable Discharge Diet: advance to your usual diet Activity: increase activity as tolerated Hygiene: no restrictions Weight Bearing at Discharge: full weight bearing Driving: no restrictions Contact your physician if you experience:: fever over 101, Nausea/Vomiting - Discharge Medications New Levofloxacin Tab [Levaquin Tab] 500 mg PO DAILY #6 tablet rOPINIRole [Requip] 0.5 mg PO BEDTIME #30 tablet Changed Omeprazole 40 mg PO BID #60 capsule - Follow Up or Referral Follow Up: Pan Shelton MD [Physician] - 1 Month Rock Israel MD [Physician] - 1 Week oTribio Coughlin DO [Physician] - 2 Weeks - Forms/Instructions Instructions: Levofloxacin (By mouth), Ropinirole (By mouth), Gastroesophageal Reflux Disease (DC) Exam - Constitutional Vitals: Period Temp Pulse Resp BP Sys/Howe Pulse Ox Last 24 Hr 97.3 F-99.5 F 63-90 14-22 95-117/49-67 98-100 Discharge Results Procedures and tests throughout hospitalization: Pending Orders 12/10/16 06:29 Blood Culture Stat Labs on day of discharge: Labs from last 24 hours 12/13/16 09:27 Serum , Qual Negative Preliminary micro results at discharge 12/10/16 06:29 Blood Culture - Preliminary Blood No growth at 3 days 12/10/16 06:29 Blood Culture - Preliminary Blood No growth at 3 days DS: Provider Date of admission: 12/11/16 12:42 Patient came to the hospital with shortness of breath and coughing. This was worse at night and it was felt this was due to acid reflux secondary to gastric sleeve that she had had in the past, was. [place] that she aspirated. Has done this in the past. We will put her in the hospital and started on antibiotics. Got pulmonary consult and also a GI consult who did a EGD. Was placed on breathing treatments and patient did ultimately turnaround. He took some time for her final day of discharge was much better. We will monitor closely. She is going to be placed on a proton pump inhibitor twice a day and told her to elevate the head of her bed little bit. Will follow up with her in the clinic as directed Primary care physician: . No PCP Attending physician on admission: Toribio Coughlin DO Consults: 12/10/16 07:54 Consult to Case Mgmt/Social Srvs [CONS] Routine Reason for Case Mgmt/Social Srvs: Discharge Planning 12/10/16 07:55 Consult to Physician [CONS] Routine Comment: Possible aspiration pneumonia Consulting Provider: Rock Israel Person Notified: clay Date Notified: 12/10/16 Time Notified: 09:17 Consult Notification Comment: 12/10/16 11:08 Consult to Physician [CONS] Routine Comment: recurrent aspiration, Hx gastric sleeve Consulting Provider: Pan Shelton Consult to Specialist Group: Gastroenterology When should Consulting Provider be notified: Sergio Person Notified: BEAU [facility] Date Notified: 12/10/16 Time Notified: 11:25 Discharging clinician: Toribio Coughlin DO
== END 2016-12-13 18:00 | disposition home or self-care (01) | DRG 178 ==
LOC: N.EDINP 05:29 → N.ED 05:29 → N.EDINP 08:42 → N.5E 08:57
PROVIDERS: ADMIT Family Medicine; ATTEND Family Medicine